=== PATIENT | male | born 1960 ===

== ENCOUNTER 2020-11-25 10:48 | Emergency (ER) | payer SELFPAY ==
[2020-11-25] MEDS ORDERED: INSULIN REGULAR 100 UNIT/ML 3ML VIAL. IV ONE ×2 (11:00→13:00)
[2020-11-25] MEDS ORDERED: IV NORMAL SALINE 1,000ML 1,000 ML IV ONE (11:00)
--- NOTE | 2020-11-25 11:02 | PHYS DOC ---
Past History Past Medical History: Diabetes Adult General HPI HPI Patient is a 59-year-old male presenting via EMS status post code. Little is known about individual. EMS was called for an unwitnessed arrest with last known well time being 40 minutes prior to EMS arrival. He called his apartment complex to notify them of leaking water under his door, apartment complex personnel attempted to knock on his door 35 minutes later without response and when gained entry, EMS was called for potential code black. Patient was found down, unresponsive, and PEA on EMS arrival and so, ACLS ensued. And I-gel airway was placed, x5 epinephrine administered, 500 mL lactic Ringer's was administered. Patient was found to have insulin pump attached to his body and this was removed, his subsequent POC glucose read "high". Patient had ROSC obtained while in ambulance but this was transient, approximately 2 minutes after ROSC he went into ventricular fibrillation and had a total of x3 defibrillations administered with subsequent ROSC. Review of Systems Review of Systems Unobtainable due to ongoing mentation Physical Exam Physical Exam Constitutional: Age-appropriate male, morbidly obese, appears gravely ill and unresponsive on arrival HEENT: Head: Normocephalic and atraumatic. TMs clear, no hemotympanum Conjunctivae normal, pupils are equal, round, and but unreactive to light Oropharynx is clear and dry No hematomas or lacerations or abrasions to face or scalp OP clear, no blood, no malocclusion, dentition intact Nares clear, no nasal septal hematoma Midface stable Neck: C-spine midline abnormalities, no step-offs Cardiovascular: Normal rate, regular rhythm and normal heart sounds. Pulmonary/Chest: Mechanical breathing with I gel in place, crackles present bilaterally Abdominal: Soft and distended. Bowel sounds are normal. Pt exhibits no distension. There is no tenderness. There is external insulin pump connector site present to left lateral abdomen Musculoskeletal: No bony tenderness to extremities, no deformities Chest wall stable Pelvis stable and non-tender No obvious vertebral abnormalities on direct observation or palpation, spine without stepoffs Neurological: GCS 3 No meaningful movement of extremities noted Unable to fully assess cranial nerves As noted above fixed dilated pupils nonresponsive to light Downgoing toes bilaterally Skin: Skin is warm and dry. No abrasions, no lacerations. Right IO in well-appearing position inferior to right knee in place Psychiatric: Unable to assess due to current mentation Current Patient Data Vital Signs Vital Signs Date Time Temp Pulse Resp B/P (MAP) Pulse Ox O2 Delivery O2 Flow Rate FiO2 11/25/20 11:00 41 24 88/42 (57) 93 Ventilator Vital Signs Date Time Temp Pulse Resp B/P (MAP) Pulse Ox O2 Delivery O2 Flow Rate FiO2 11/25/20 12:00 48 24 86/36 (53) 92 Ventilator Lab Results Laboratory Tests Test 11/25/20 10:55 11/25/20 11:04 11/25/20 12:17 11/25/20 12:36 White Blood Count 14.8 x10^3/uL Red Blood Count 4.14 x10^6/uL Hemoglobin 12.9 g/dL Hematocrit 46.9 % Mean Corpuscular Volume 113 fL Mean Corpuscular Hemoglobin 31 pg Mean Corpuscular Hemoglobin Concent 27 g/dL Red Cell Distribution Width 16.4 % Platelet Count 223 x10^3/uL Neutrophils (%) (Auto) 80 % Lymphocytes (%) (Auto) 11 % Monocytes (%) (Auto) 8 % Eosinophils (%) (Auto) 0 % Basophils (%) (Auto) 0 % Neutrophils # (Auto) 11.8 x10^3uL Lymphocytes # (Auto) 1.7 x10^3/uL Monocytes # (Auto) 1.2 x10^3/uL Eosinophils # (Auto) 0.0 x10^3/uL Basophils # (Auto) 0.0 x10^3/uL Platelet Estimate Pending Prothrombin Time 11.3 SEC Prothromb Time International Ratio 1.1 Activated Partial Thromboplast Time 53 SEC Sodium Level 126 mmol/L Potassium Level 8.7 mmol/L Chloride Level 89 mmol/L Carbon Dioxide Level < 5 mmol/L Anion Gap 32 Blood Urea Nitrogen 57 mg/dL Creatinine 4.2 mg/dL Estimated GFR (Cockcroft-Gault) 14.5 BUN/Creatinine Ratio 14 Glucose Level 808 mg/dL Lactic Acid Level 10.2 mmol/L Calcium Level 8.8 mg/dL Total Bilirubin 1.8 mg/dL Aspartate Amino Transf (AST/SGOT) 586 U/L Alanine Aminotransferase (ALT/SGPT) 408 U/L Alkaline Phosphatase 33 U/L Troponin I Quantitative 0.113 ng/mL IT-Yai-L-Type Natriuretic Peptide 1294 pg/mL Total Protein 7.0 g/dL Albumin 3.3 g/dL Albumin/Globulin Ratio 0.9 Salicylates Level 1.9 mg/dL Salicylate Last Dose Date Unknown Salicylate Last Dose Time Unknown Acetaminophen Level < 2.0 mcg/mL Acetaminophen Last Dose Date Unknown Acetaminophen Last Dose Time Unknown Acetone Level Neg Urine Collection Type Unknown Urine Color Yellow Urine Clarity Clear Urine pH 5.0 Urine Specific Waldron >=1.030 Urine Protein 30 mg/dl Urine Glucose (UA) >=1000 mg/dL Urine Ketones (Stick) 15 mg/dL Urine Blood Trace Urine Nitrite Neg Urine Bilirubin Neg Urine Urobilinogen Dipstick 0.2 mg/dL Urine Leukocyte Esterase Neg Urine RBC 1-2 /HPF Urine WBC 1-4 /HPF Urine Squamous Epithelial Cells Few /LPF Urine Bacteria 0 /HPF Urine Hyaline Casts Few /HPF Urine Mucus Slight /LPF Urine Opiates Screen Neg Urine Methadone Screen Neg Urine Barbiturates Neg Urine Phencyclidine Screen Neg Urine Amphetamine/Methamphetamine Neg Urine Benzodiazepines Screen Neg Urine Cocaine Screen Neg Urine Cannabinoids Screen Neg Urine Ethyl Alcohol Neg Blood Gas pH 6.83 Blood Gas PCO2 37 mmHg Blood Gas PO2 82 mmHg Blood Gas HCO3 6 mmol/L Arterial Bld O2 Saturation (Calc) 81 % FiO2 100 % SARS-CoV-2 Antigen (Rapid) Negative Test 11/25/20 14:40 11/25/20 15:00 Lactic Acid Level 10.7 mmol/L Blood Gas pH 6.97 Blood Gas PCO2 37 mmHg Blood Gas PO2 143 mmHg Blood Gas HCO3 8 mmol/L Arterial Bld O2 Saturation (Calc) 97 % FiO2 100 % Current Medications Medications (Trade) Dose Ordered Sig/Sundeep Route PRN Reason Start Time Stop Time Status Last Admin Dose Admin Sodium Chloride 1,000 ml @ 1,000 mls/hr 1X ONCE IV 11/25/20 11:00 11/25/20 11:59 DC 11/25/20 11:00 Insulin Human Regular (HumuLIN R VIAL) 20 unit 1X ONCE IV 11/25/20 11:00 11/25/20 11:12 DC 11/25/20 10:55 Norepinephrine Bitartrate (Levophed) 4 mg STK-MED ONCE IV 11/25/20 11:06 11/25/20 11:06 DC Dextrose 250 ml @ As Directed STK-MED ONCE IV 11/25/20 11:09 11/25/20 11:09 DC Norepinephrine Bitartrate 8 mg/ Dextrose 258 ml @ 13.545 mls/ hr CONT PRN IV SEE I/O RECORD 11/25/20 11:15 11/25/20 13:02 DC 11/25/20 11:16 Iohexol (Omnipaque 300 Mg/ml) 75 ml 1X ONCE IV 11/25/20 11:45 11/25/20 11:54 DC 11/25/20 11:45 Sodium Bicarbonate (Sodium Bicarb Adult 8.4% Syr) 50 meq 1X ONCE IV 11/25/20 12:45 11/25/20 12:47 DC 11/25/20 12:45 Insulin Human Regular (HumuLIN R VIAL) 10 unit 1X ONCE IV 11/25/20 13:00 11/25/20 13:01 DC 11/25/20 13:00 Norepinephrine Bitartrate 8 mg/ Dextrose 258 ml @ 33.282 mls/ hr CONT PRN IV SEE I/O RECORD 11/25/20 13:00 11/25/20 13:05 Epinephrine HCl 5 mg/Sodium Chloride 255 ml @ 52.632 mls/ hr CONT PRN IV PER PROTOCOL 11/25/20 13:45 11/25/20 14:39 Ceftriaxone Sodium 2 gm/ Sodium Chloride 100 ml @ 200 mls/hr 1X ONCE IV 11/25/20 13:45 11/25/20 14:14 DC Azithromycin 500 mg/Sodium Chloride 250 ml @ 250 mls/hr 1X ONCE IV 11/25/20 13:45 11/25/20 14:44 DC Sodium Chloride 1,000 ml @ 250 mls/hr 1X ONCE IV 11/25/20 13:45 11/25/20 17:44 11/25/20 14:51 Insulin Human Regular 100 unit/ Sodium Chloride 101 ml @ 0 mls/hr CONT PRN IV SEE I/O RECORD 11/25/20 13:45 11/25/20 14:43 Dextrose (Dextrose 50%-Water Syringe) 12.5 gm PRN Q15MIN PRN IV LOW BLOOD SUGAR 11/25/20 13:45 EKG EKG EKG ordered and interpreted by myself at 1055 hrs. as an irregular rhythm at 63 bpm, unremarkable intervals, right axis deviation, peaked T waves, no STEMI Repeat EKG ordered and interpreted by myself at 1507 hrs. is a junctional rhythm at 84 bpm, unremarkable intervals, left axis deviation, no STEMI Radiology/Procedures Radiology/Procedures Single view of the chest. 11/25/2020 11:05 AM Indication: Reason: S/P INTUBATION / Spl. Instructions: / History: Comparison: None Findings: There is no endotracheal tube 4 to 5 cm above the lynn. There is linear opacity in right lung base likely representing atelectasis of the middle lobe. Lesser atelectasis in the right upper lobe is also present. Heart is enlarged. No pneumothorax or pleural effusion is identified. No acute osseous changes are seen. IMPRESSION: 1. Endotracheal tube 4 to 5 cm above the lynn 2. Right middle lobe atelectasis, and to a lesser degree right upper lobe atelectasis. Follow-up radiographs recommended to ensure resolution. 3. Cardiomegaly Electronically signed by: Emanuel Alba MD (11/25/2020 11:26 AM) [id number] //////////////////////// XR CHEST 1V History: Status post right IJ placement failed attempt. Comparison: 11/25/2020 Technique: Portable AP chest radiograph. FINDINGS/ IMPRESSION: Tubes and lines: Endotracheal tube tip projects 3.5 cm above the lynn. Lungs and pleura: Hazy bilateral lower lobe opacities. Linear right upper lobe opacities likely atelectasis. No pleural effusion or pneumothorax.. Cardiac silhouette and pulmonary vasculature: Stable enlarged cardiac silhouette. Osseous structures and other: No acute osseous abnormality. Electronically signed by: Zachary Porras MD (11/25/2020 12:31 PM) [id number] //////////////////////////////////////// CT Head W/O Contrast: History: Reason: unwitnessed cardiac arrest / Spl. Instructions: / History: Comparison: none Axial images were obtained without contrast. There is poor differentiation between the white and zhu matter. There is no mass effect, extraaxial fluid collections or hydrocephalus. There is no gross bleed. There is no hypoattenuation to suggest acute ischemia, i.e. stroke. Impression: Decreased distinction between white and zhu matter is consistent with diffuse cerebral edema and suggests either an episode of hypoxia or hypotension. This has a poor prognosis. End impression CT C-Spine without contrast: Clinical History: Reason: unwitnessed cardiac arrest / Spl. Instructions: / History: Technique: Axial helical images of the cervical spine were obtained without contrast, axial coronal and sagittal reconstruction was performed. Findings: There is no loss of vertebral body stature. There is no prevertebral soft tissue swelling. The vertebral bodies are well aligned. The C1-C2 relationship is normal. The visualized osseous structures appear normal. Impression: No acute findings. Clinical correlation suggested. End impression See CT head without contrast. These results were called to the Emergency Department and verified by read back at the time of dictation. PQRS Compliance Statement: One or more of the following individualized dose reduction techniques were utilized for this examination: 1. Automated exposure control 2. Adjustment of the mA and/or kV according to patient size 3. Use of iterative reconstruction technique FOR INTERNAL CODING PURPOSES Critical result: Findings discussed with the ER physician at 11/25/2020 2:38 PM. RESULT CODE: (C) Electronically signed by: Juan M Renae III, MD (11/25/2020 2:38 PM) [facility] /////////////////////////////////// CT chest abdomen and pelvis with contrast: History: Unwitnessed cardiac arrest Axial helical images of the chest abdomen and pelvis were obtained after the administration of 100 cc IV Isovue-370 contrast. Delayed images were obtained from above the kidneys to the urinary bladder. Comparison: none CT OF THE CHEST WITH IV CONTRAST: There is mild pleural effusions bilaterally. There is patchy opacities in the lower lobes bilaterally and there is a few patchy opacities throughout the right lung. There is mild coronary artery calcifications. There is mild gynecomastia bilaterally. There is no mediastinal lymphadenopathy or hematoma. Lymphadenopathy: no Thoracic aorta: normal Impression: Mild pleural effusions and bilateral pulmonary infiltrates. This could be secondary to CHF or pneumonia. End Impression CT OF THE ABDOMEN AND PELVIS WITH IV CONTRAST: There is a small stone in the gallbladder however this no wall thickening or surrounding inflammation. There is a fat-containing umbilical hernia. The colon is partially collapsed and not well evaluated. Liver: Unremarkable Spleen: Unremarkable Pancreas: Atrophic Adrenal Glands: Unremarkable Kidneys: Poor nephrogram bilaterally Evaluation of stomach and bowel is limited without oral contrast. Lymphadenopathy: no. Free fluid: no. Free air: no. The bladder is collapsed around a Elam and not well evaluated. Impression: Poor excretion of contrast into the renal parenchyma bilaterally. This could be secondary to renal injury from hypotension. End impression PQRS Compliance Statement: One or more of the following individualized dose reduction techniques were utilized for this examination: 1. Automated exposure control 2. Adjustment of the mA and/or kV according to patient size 3. Use of iterative reconstruction technique Electronically signed by: Juan M Renae III, MD (11/25/2020 2:48 PM) [facility] Heart Score C/O Chest Pain: N/A HEART Score for Chest Pain: HEART Score for Chest Pain Response (Comments) Value History Highly Suspicious 2 ECG Nonspecific Repolarizatio 1 Total 3 Risk Factors: Risk Factors: DM, Current or recent (<one month) smoker, HTN, HLP, family history of CAD, obesity. Risk Scores: Risk Factors: DM, Current or recent (<one month) smoker, HTN, HLP, family history of CAD, obesity. Course & Med Decision Making Course & Med Decision Making Airway patent with I gel in place, breathing mechanical and assisted by BVM, IV access and vitals obtained concerning for marked bradycardia, hypotension, and decreased respiratory rate. [id number] glucose read as "high" IO in place to right lower extremity, bilateral peripheral IVs obtained. Abdominal insulin pump disconnected. Patient has I gel in place but not protecting airway, patient intubated w/o issue. Cxr concerning for shallow placement, ETT advanced and subsequent cxr showed adequate placement Shortly after intubation, patient became pulseless and ACLS ensued. X1 sodium bicarb, x1 calcium chloride and 20u IV insulin administered with ROSC obtained. Levophed started. EKG obtained concerning for abnormal rhythm and peaked T waves, no STEMI Right IJ central line placement attempted but unsuccessful. Subsequent right femoral central line placed. Labs resulted concerning for severe metabolic acidosis with associated electrolyte abnormalities and kidney injury due to HHS. 500 mL LR, 3 L IV normal saline administered in ER setting. An additional 10 units IV insulin administered. Patient subsequently placed on half-normal saline and insulin drip. Rocephin and azithromycin started for potential pulmonary infection While on CT table, patient again went pulseless, found to be in PEA. A total of x2 sodium bicarb, 1 epinephrine, 10 units IV insulin and x1 calcium chloride administered with ROSC obtained. Images obtained and patient brought back to trauma bay Patient's hemodynamic state normalized, remained dependent on epinephrine, Levophed, half-normal saline and insulin drip. There was still no purposeful movements, pupils fixed and dilated, CT imaging concerning for cerebral edema secondary to severe hypoxia Only obtainable contact from [facility] was [id number], Robert Neil ([phone]), efforts were made to contact him without success. No known next of kin or other contact information available At this time in care, [facility] hospitalist called and case reviewed, they agreed need for hospital admission and accepted patient transfer EMS contacted. Signout given to them. Patient hemodynamically stable at time of ER transfer to [facility] for direct admission into ICU set ting Critical Care Time This patient required critical care. Due to the fact that the patient required a significant amount of one on one physician - patient contact time, ordering and review of studies, arranging urgent treatment with development of a management plan, evaluation of patients response to treatment with frequent reassessments, and discussions with other providers this patient required 90 minutes of critical care time. Critical care time was indicated due to the inherent instability and/or potential for instability in this patient. The critical care time that is allocated to this patient is above and beyond any time spent on any other billable procedures performed on this patient. Dragon Disclaimer Dragon Disclaimer This electronic medical record was generated, in whole or in part, using a voice recognition dictation system. Central Line Central Line : Central Line Lumen: triple Central Line Procedure: betadine prep, sterile drapes applied, sterile dressing applied Central Line Postion: internal jugular (R), femoral (R) Complications: Central Line Post Position: sutured, good blood return Progress Indication: Emergency vascular access for fluid and/or drug administration Consent: Implied, medical necessity. The patient was placed in Trendelenburg and the right neck area was prepped and draped in a sterile fashion The area of interest was not anesthetized with local anesthetic The introducer needle bevel orientated inferomedially, the desired area was entered shallowly advancing with continuous aspiration on the syringe until the target right internal jugular vein was entered with confirmation by ultrasound and there was free flow of venous blood. A Salinger technique was then utilized to place a central venous catheter over a guidewire. The catheter kinked and was not fully inserted in adequate position. All lines, needles, catheters etc. were removed and the procedure was prematurely terminated Estimated blood loss: <10ml Complications: Right internal jugular vein was identified but difficulty was had inserting catheter. Procedure was stopped before further harmed patient was performed. Postprocedural chest x-ray obtained nonconcerning for any concerning hematoma, loss of blood, pneumothorax etc. Indication: Emergency vascular access for fluid and/or drug administration Consent: Implied, medical necessity. The patient was placed in Trendelenburg and the right groin area was prepped and draped in a sterile fashion The area of interest was not anesthetized with local anesthetic The introducer needle bevel orientated inferomedially, the desired area was entered shallowly advancing with continuous aspiration on the syringe until the target right femoral vein was entered with confirmation by ultrasound and there was free flow of venous blood. A Salinger technique was then utilized to place a central venous catheter over a guidewire and the catheter was secured in place in typical fashion Placement confirmed by VBG showing adequate venous placement Estimated blood loss: <10ml Complications: None Intubation Intubation : Tube Size (cm): 7.5 Breath Sounds after Intubation: equal Intubation Complications: no complications Post Intubation Xray: Yes Progress The patient required endotracheal intubation due to status post code with no ability to protect airway, poor oxygenation and ventilation Consent was implied due to medical necessity The patient was given no medications given acute mental status Once patient was placed in adequate position, glidoscope 4.0 blade was used to directly visualize the cords Using this direct visualization, a 7.5 endotracheal tube was then passed easily through the cords The tube was inserted at 21 centimeters at the lip There is excellent color change on end-tidal CO2 monitor. Patient was easily and adequately ventilated. There was excellent breath sounds bilaterally with no b reath sounds heard over the epigastrium. The tube was secured in standard fashion. The patient tolerated procedure well with no observed nor reported complications Post intubation chest x-ray demonstrates shallow endotracheal tube placement, ETT was subsequently advanced 3 cm and subsequent chest x-ray showed adequate positioning of tube Departure Departure: Impression: Primary Impression: Cardiac arrest Additional Impressions: Acute respiratory failure with hypoxia Metabolic acidosis due to diabetes mellitus Hyperosmolar hyperglycemic state (HHS) Elevated troponin Disposition: 02 [facility]M [facility] ([facility]) Condition: CRITICAL Referrals: PCP,UNKNOWN (PCP) Problem Qualifiers MAXIM CONNELL DO Nov 25, 2020 11:02
[2020-11-25] MEDS ORDERED: NOREPINEPHRINE BITARTRATE 4 MG/4 ML VIAL. IV ONE (11:06)
[2020-11-25] MEDS ORDERED: IV DEXTROSE 5% 250 ML IV ONE (11:09)
[2020-11-25] MEDS ORDERED: NOREPINEPHRINE BITARTRATE 8 MG in IV DEXTROSE 5% 250 ML IV PRN ×2 (11:15→13:00)
--- NOTE | 2020-11-25 11:29 | RAD ---
Single view of the chest. 11/25/2020 11:05 AM Indication: Reason: S/P INTUBATION / Spl. Instructions: / History: Comparison: None Findings: There is no endotracheal tube 4 to 5 cm above the lynn. There is linear opacity in right lung base likely representing atelectasis of the middle lobe. Lesser atelectasis in the right upper l obe is also present. Heart is enlarged. No pneumothorax or pleural effusion is identified. No acute o sseous changes are seen. IMPRESSION: 1. Endotracheal tube 4 to 5 cm above the lynn 2. Right middle lobe atelectasis, and to a lesser degree right upper lobe atelectasis. Follow-up radi ographs recommended to ensure resolution. 3. Cardiomegaly Electronically signed by: Emanuel Alba MD (11/25/2020 11:26 AM) [id number]
[2020-11-25 11:31] LABS: BASO % 0 % (0-3); EOS % 0 % (0-3); HEMATOCRIT 46.9 % (39.0-53.0); HEMOGLOBIN 12.9 g/dL (13.0-17.5); LYMPH # 1.7 x10^3/uL (1.0-4.8); LYMPH % 11 % (24-48); MEAN CORPUSCULAR HEMOGLOBIN 31 pg (25-35); MEAN CORPUSCULAR HGB CONC 27 g/dL (31-37); MEAN CORPUSCULAR VOLUME 113 fL (79-100); MONO # 1.2 x10^3/uL (0.0-1.1); MONO % 8 % (0-9); NEUT # 11.8 x10^3uL (1.8-7.7); NEUT % 80 % (31-73); PLATELET COUNT 223 x10^3/uL (140-400); RED BLOOD COUNT 4.14 x10^6/uL (4.30-5.70); RED CELL DISTRIBUTION WIDTH 16.4 % (11.5-14.5); WHITE BLOOD COUNT 14.8 x10^3/uL (4.0-11.0)
[2020-11-25] MEDS ORDERED: IOHEXOL 300 MG/ML 75 ML VIAL. IV ONE (11:45)
[2020-11-25] MEDS ORDERED: SODIUM BICARB ADULT 8.4% 50 MEQ/50 ML DISP.SYRIN. ONE (12:00)
[2020-11-25] MEDS ORDERED: CALCIUM CHLORIDE 1,000 MG/10 ML VIAL IV ONE (12:00)
[2020-11-25] MEDS ORDERED: EPINEPHrine SYRINGE 1 MG/10 ML SYRINGE ONE (12:00)
[2020-11-25] MEDS ORDERED: ATROPINE 1 MG/10 ML DISP.SYRINGE. ONE (12:00)
[2020-11-25 12:04] LABS: ACETAMIN < 2.0 mcg/mL (10-30); SALIC 1.9 mg/dL (2.8-20.0)
[2020-11-25 12:07] LABS: BARBITURATES NEG (NEG); BENZODIAZEPINES NEG (NEG); CANNABINOIDS NEG (NEG); COCAINE NEG (NEG); METHADONE NEG (NEG); OPIATES NEG (NEG); PHENCYCLIDINE NEG (NEG)
[2020-11-25 12:07] LABS: ALBUMIN 3.3 g/dL (3.4-5.0); ALBUMIN/GLOBULIN RATIO 0.9 (1.0-1.7); ALK PHOS 33 U/L (46-116); ALT (SGPT) 408 U/L (16-63); AST (SGOT) 586 U/L (15-37); BLOOD UREA NITROGEN 57 mg/dL (8-26); BUN/CREATININE RATIO 14 (6-20); CALCIUM 8.8 mg/dL (8.5-10.1); CHLORIDE 89 mmol/L (98-107); CREATININE 4.2 mg/dL (0.7-1.3); GFR 14.5; SODIUM 126 mmol/L (136-145); TOTAL BILIRUBIN 1.8 mg/dL (0.2-1.0)
[2020-11-25 12:09] LABS: AMPHETAMINE/METHAMPHETAMINE NEG (NEG)
[2020-11-25 12:31] LABS: BGAS PH 6.83 (7.35-7.46)
--- NOTE | 2020-11-25 12:34 | RAD ---
XR CHEST 1V History: Status post right IJ placement failed attempt. Comparison: 11/25/2020 Technique: Portable AP chest radiograph. FINDINGS/ IMPRESSION: Tubes and lines: Endotracheal tube tip projects 3.5 cm above the lynn. Lungs and pleura: Hazy bilateral lower lobe opacities. Linear right upper lobe opacities likely atele ctasis. No pleural effusion or pneumothorax.. Cardiac silhouette and pulmonary vasculature: Stable enlarged cardiac silhouette. Osseous structures and other: No acute osseous abnormality. Electronically signed by: Zachary Porras MD (11/25/2020 12:31 PM) [id number]
[2020-11-25] MEDS ORDERED: SODIUM BICARB ADULT 8.4% 50 MEQ/50 ML DISP.SYRIN. IV ONE (12:45)
[2020-11-25 12:48] LABS: ANION GAP 32 (6-14); CARBON DIOXIDE < 5 mmol/L (21-32); GLUCOSE 808 mg/dL (70-99); POTASSIUM 8.7 mmol/L (3.5-5.1)
[2020-11-25] MEDS ORDERED: AZITHROMYCIN 500 MG in IV NORMAL SALINE 250ML 250 ML IV ONE (13:45)
[2020-11-25] MEDS ORDERED: EPINEPHrine 5 MG in IV NORMAL SALINE 250ML 250 ML IV PRN (13:45)
[2020-11-25] MEDS ORDERED: IV 1/2 NORMAL SALINE 1,000 ML IV ONE (13:45)
[2020-11-25] MEDS ORDERED: INSULIN REGULAR VIAL 100 UNIT in IV NORMAL SALINE 100ML 100 ML IV PRN (13:45)
[2020-11-25] MEDS ORDERED: DEXTROSE 50% 25 GM / 50ML DISP.SYRIN. IV PRN (13:45)
[2020-11-25 14:10] LABS: BACTERIA,URINE 0 /HPF (0-FEW); BILIRUBIN,URINE NEG (NEG); CLARITY,URINE CLEAR; COLOR,URINE YELLOW; GLUCOSE,URINE >=1000 mg/dL (NEG); HYALINE CASTS, URINE FEW /HPF; NITRITE,URINE NEG (NEG); SQUAMOUS EPITHELIAL CELL,UR FEW /LPF; UROBILINOGEN,URINE 0.2 mg/dL (0.2 mg/dL)
--- NOTE | 2020-11-25 14:40 | RAD ---
CT Head W/O Contrast: History: Reason: unwitnessed cardiac arrest / Spl. Instructions: / History: Comparison: none Axial images were obtained without contrast. There is poor differentiation between the white and zhu matter. There is no mass effect, extraaxial fluid collections or hydrocephalus. There is no gross bleed. There is no hypoattenuation to suggest acute ischemia, i.e. stroke. Impression: Decreased distinction between white and zhu matter is consistent with diffuse cerebral edema and sug gests either an episode of hypoxia or hypotension. This has a poor prognosis. End impression CT C-Spine without contrast: Clinical History: Reason: unwitnessed cardiac arrest / Spl. Instructions: / History: Technique: Axial helical images of the cervical spine were obtained without contrast, axial coronal and sagittal reconstruction was performed. Findings: There is no loss of vertebral body stature. There is no prevertebral soft tissue swelling. The vert ebral bodies are well aligned. The C1-C2 relationship is normal. The visualized osseous structures a ppear normal. Impression: No acute findings. Clinical correlation suggested. End impression See CT head without contrast. These results were called to the Emergency Department and verified by read back at the time of dictat ion. PQRS Compliance Statement: One or more of the following individualized dose reduction techniques were utilized for this examinat ion: 1. Automated exposure control 2. Adjustment of the mA and/or kV according to patient size 3. Use of iterative reconstruction technique FOR INTERNAL CODING PURPOSES Critical result: Findings discussed with the ER physician at 11/25/2020 2:38 PM. RESULT CODE: (C) Electronically signed by: Juan M Renae III, MD (11/25/2020 2:38 PM) [facility]
--- NOTE | 2020-11-25 14:50 | RAD ---
CT chest abdomen and pelvis with contrast: History: Unwitnessed cardiac arrest Axial helical images of the chest abdomen and pelvis were obtained after the administration of 100 cc IV Isovue-370 contrast. Delayed images were obtained from above the kidneys to the urinary bladder. Comparison: none CT OF THE CHEST WITH IV CONTRAST: There is mild pleural effusions bilaterally. There is patchy opacities in the lower lobes bilaterally and there is a few patchy opacities throughout the right lung. There is mild coronary artery calcifications. There is mild gynecomastia bilaterally. There is no mediastinal lymphadenopathy or hematoma. Lymphadenopathy: no Thoracic aorta: normal Impression: Mild pleural effusions and bilateral pulmonary infiltrates. This could be secondary to CHF or pneumon ia. End Impression CT OF THE ABDOMEN AND PELVIS WITH IV CONTRAST: There is a small stone in the gallbladder however this no wall thickening or surrounding inflammation . There is a fat-containing umbilical hernia. The colon is partially collapsed and not well evaluated. Liver: Unremarkable Spleen: Unremarkable Pancreas: Atrophic Adrenal Glands: Unremarkable Kidneys: Poor nephrogram bilaterally Evaluation of stomach and bowel is limited without oral contrast. Lymphadenopathy: no. Free fluid: no. Free air: no. The bladder is collapsed around a Elam and not well evaluated. Impression: Poor excretion of contrast into the renal parenchyma bilaterally. This could be secondary to renal in jury from hypotension. End impression PQRS Compliance Statement: One or more of the following individualized dose reduction techniques were utilized for this examinat ion: 1. Automated exposure control 2. Adjustment of the mA and/or kV according to patient size 3. Use of iterative reconstruction technique Electronically signed by: Juan M Renae III, MD (11/25/2020 2:48 PM) [facility]
[2020-11-25 15:17] LABS: BGAS PH 6.97 (7.35-7.46)
[2020-11-25 15:30] VITALS: BP 87/55
--- NOTE | 2020-11-25 15:54 | EKG ---
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
--- NOTE | 2020-11-25 15:56 | EKG ---
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
[2020-11-25 17:07] LABS: % BANDS 4 % (0-9); % LYMPHS 14 % (24-48); % METAS 2 % (0-0); % MONOS 4 % (0-10); % MYELOS 2 % (0-0); % SEGS 74 % (35-66); TOXIC VACUOLATION PRESENT
[2020-11-25 17:08] LABS: PLT ESTIMATE ADEQUATE (ADEQUATE)
== END 2020-11-25 16:48 | disposition short-term general hospital (02) ==
LOC: ER 10:48
DX: I46.9 Cardiac arrest, cause unspecified (principal); J96.01 Acute respiratory failure with hypoxia; E87.2 Acidosis; E11.65 Type 2 diabetes mellitus with hyperglycemia; R77.8 Other specified abnormalities of plasma proteins; Z20.822 Contact with and (suspected) exposure to COVID-19
CPT/HCPCS: 31500; 36415; 36556; 36600; 51702; 70450; 71045; 71260; 72125; 74177; 80053; 80307; 80329; 81001; 82010; 82803; 83605; 83880; 84484; 85007; 85025; 85610; 85730; 87426; 93005; 96365; 96366; 96368; 96375; 96376; 99291; 99292; C9803; J0171; J0461; J1815; J7030; J7050; Q9967; U0003; 94002; G0480